=== PATIENT | female | born 1975 ===

== ENCOUNTER 2017-09-17 12:11 | Emergency (ER) | payer SELFPAY ==
[2017-09-17 12:15] VITALS: BMI 26.6
[2017-09-17 12:16] VITALS: RESP 18
--- NOTE | 2017-09-17 12:52 | ED PDOC ---
HPI: Back Time Seen by Provider: 09/17/17 12:26 Chief Complaint (Nursing): Back Pain Chief Complaint (Provider): Back Pain History Per: Patient History/Exam Limitations: no limitations Onset/Duration Of Symptoms: Days (x3) Current Symptoms Are (Timing): Still Present Exacerbating Factor(s): Movement Additional Complaint(s): Patient reports 3 day history of pain in the lower back, which worsens with movement. Associated with nausea. Patient also reports she started her period 6 days ago. States she has been taking ibuprofen without relief, and also began taking Cipro she had at home. Otherwise: (-) vomiting, (-) diarrhea, (- ) paresthesias, (-) weakness, (-) acute bowel or bladder dysfunction, (-) fever , (-) fall or trauma. Reports history of renal colic. PMD: Isak Henry Past Medical History Reviewed: Historical Data, Nursing Documentation, Vital Signs Vital Signs: Last Vital Signs Temp 98.2 F 09/17/17 12:14 Pulse 54 L 09/17/17 12:14 Resp 18 09/17/17 12:14 BP 118/74 09/17/17 12:14 Pulse Ox 100 09/17/17 12:14 - Medical History PMH: Asthma, Kidney Stones - Family History Family History: States: Unknown Family Hx - Social History Current smoker - smoking cessation education provided: No Alcohol: None Drugs: Denies - Home Medications Home Medications: Ambulatory Orders Medication Instructions Recorded Cyclobenzaprine [Cyclobenzaprine 10 mg PO TID PRN #15 tab 09/17/17 HCl] Meloxicam [Mobic] 15 mg PO DAILY #30 tab 09/17/17 - Allergies Allergies/Adverse Reactions: Allergies Allergy/AdvReac Type Severity Reaction Status Date / Time No Known Allergies Allergy Verified 09/17/17 12:51 Review of Systems ROS Statement: Except As Marked, All Systems Reviewed And Found Negative Constitutional: Negative for: Fever Gastrointestinal: Positive for: Nausea. Negative for: Vomiting, Diarrhea Genitourinary Female: Negative for: Incontinence Musculoskeletal: Positive for: Back Pain Neurological: Negative for: Weakness, Numbness, Other (paresthesia) Physical Exam - Reviewed Nursing Documentation Reviewed: Yes Vital Signs Reviewed: Yes - Physical Exam Comments: GENERAL APPEARANCE: Patient is awake, alert, oriented x 3, in mild painful distress. SKIN: Warm, dry; (-) cyanosis. EYES: (-) conjunctival pallor. ENMT: Mucous membranes moist. NECK: (-) tenderness, (-) stiffness, (-) lymphadenopathy. CHEST AND RESPIRATORY: (-) rales, (-) rhonchi, (-) wheezes; breath sounds equal bilaterally. HEART AND CARDIOVASCULAR: (-) irregularity; (-) murmur, (-) gallop. ABDOMEN AND GI: Soft; (-) tenderness; (-) palpable mass. BACK: (+) Right paralumbar tenderness, (-) CVA tenderness, (-) direct bony tenderness, (-) deformity. Straight leg raising (-) bilaterally. EXTREMITIES: (-) deformity. Distal pulses good bilaterally. NEURO AND PSYCH: Mental status as above. Intact sensation bilaterally; normal strength in extension of the knees, plantar and dorsiflexion of the toes. DTRs symmetric. - ECG O2 Sat by Pulse Oximetry: 100 (RA) Pulse Ox Interpretation: Normal Medical Decision Making Medical Decision Making: Time: 12:55 Initial Plan: --Flexeril 10 mg PO --Toradol 60 mg IM --Renal ultrasound Uhcg (-) UA (-) blood, (-) nitrate, (-) leuks Time: 14:57 Renal US: FINDINGS: RIGHT KIDNEY: Measures: 11.8 cm. Normal in size, contour and echogenicity. No stone, solid mass lesion or hydronephrosis visualized. LEFT KIDNEY: Measures: 10.7 cm. Normal in size, contour and echogenicity. No stone, solid mass lesion or hydronephrosis visualized. OTHER FINDINGS: None. IMPRESSION: Normal renal sonogram. Time: 15:21 On reevaluation, patient is feeling better and sitting comfortably. No abdominal tenderness or CVA tenderness on exam. Stable for discharge home. Patient counseled regarding diagnosis of musculoskeletal back pain. Advised to follow up with primary care physician or the clinic in 1-2 days without fail. Advised to take medication as prescribed. Return to the emergency room at any time for any new or worsening symptoms. Patient states she fully agrees with and understands discharge instructions. States that she agrees with the plan and disposition. Verbalized and repeated discharge instructions and plan. I have given the patient opportunity to ask any additional questions. Scribe Attestation: Documented by Kiana Sarmiento, acting as a scribe for Stephania Deleon PA-C Provider Scribe Attestation: All medical record entries made by the Scribe were at my direction and personally dictated by me. I have reviewed the chart and agree that the record accurately reflects my personal performance of the history, physical exam, medical decision making, and the department course for this patient. I have also personally directed, reviewed, and agree with the discharge instructions and disposition. Disposition - Clinical Impression Clinical Impression: Low back pain - Patient ED Disposition Is Patient to be Admitted: No Counseled Patient/Family Regarding: Studies Performed, Diagnosis, Need For Followup, Rx Given - Disposition Referrals: [facility] [Outside] Disposition: Routine/Home Disposition Time: 15:10 Condition: STABLE Additional Instructions: Thank you for letting us take care of you today. You were treated for low back pain. The emergency medical care you received today was directed at your acute symptoms. If you were prescribed any medication, please fill it and take as directed. It may take several days for your symptoms to resolve. Return to the Emergency Department if your symptoms worsen, do not improve, or if you have any other problems. Please contact your doctor in 2 days for re-evaluation and follow up / or call one of the physicians/clinics you have been referred to that are listed on the Patient Visit Information form that is included in your discharge packet. Bring any paperwork you were given at discharge with you along with any medications you are taking to your follow up visit. Our treatment cannot replace ongoing medical care by a primary care provider (PCP) outside of the emergency department. [facility] today. Prescriptions: Cyclobenzaprine [Cyclobenzaprine HCl] 10 mg PO TID PRN #15 tab PRN Reason: Muscle Spasm Meloxicam [Mobic] 15 mg PO DAILY #30 tab Instructions: Low Back Pain (DC) Forms: [employer] (Austrian), [facility] ED School/Work Excuse Print Language: [place] - POA Present On Arrival: None
--- NOTE | 2017-09-17 14:58 | US ---
PROCEDURE: Ultrasound of the Kidneys HISTORY: Left back pain COMPARISON: None available. TECHNIQUE: Grayscale imaging was performed. FINDINGS: RIGHT KIDNEY: Measures: 11.8 cm. Normal in size, contour and echogenicity. No stone, solid mass lesion or hydronephrosis visualized. LEFT KIDNEY: Measures: 10.7 cm. Normal in size, contour and echogenicity. No stone, solid mass lesion or hydronephrosis visualized. OTHER FINDINGS: None. IMPRESSION: Normal renal sonogram.
[2017-09-17 15:22] VITALS: BP 100/59; PULSE 56; TEMP 98.4
[2017-09-17 15:27] VITALS: O2SAT 100
== END 2017-09-17 15:33 | disposition home or self-care (01) ==
LOC: H.ER 12:11
DX: M54.5 Low back pain (principal); J45.909 Unspecified asthma, uncomplicated
CPT/HCPCS: 76770; 81025; 96372; 99282; J1885

== ENCOUNTER 2018-02-06 02:10 | Emergency (ER) | payer SELFPAY ==
[2018-02-06 02:12] VITALS: BMI 26.6
[2018-02-06 02:20] VITALS: BP 99/61; PULSE 77; RESP 16; TEMP 98.2; O2SAT 98
[2018-02-06] MEDS ORDERED: Sodium Chloride 0.9% 1,000 ML IV STA (02:21)
[2018-02-06] MEDS ORDERED: DiphenhydrAMINE 50 mg/ml Inj IVP STA (02:21)
[2018-02-06] MEDS ORDERED: DiphenhydrAMINE 50 mg/ml Inj ONE (02:31)
--- NOTE | 2018-02-06 02:33 | ED PDOC ---
HPI: Allergic Reaction Time Seen by Provider: 02/06/18 02:21 Chief Complaint (Nursing): Allergic Reaction History Per: Patient History/Exam Limitations: no limitations Onset/Duration Of Symptoms: Mins Current Symptoms Are (Timing): Better Possible Cause: Unknown Associated Symptoms: Swelling, Trouble Swallowing Home/EMS Treatment: Benadryl Severity: Mild Additional Complaint(s): No PMHx presenting with allergic reaction, states she has had similar reactions in the past but has not had workup with coffee bar attendant yet due to insurance issues. States that 1 hour prior to arrival she noticed swelling of her lips and throat swelling and mild difficulty breathing. States she took one benadryl and started to feel better but still had lip swelling, prompting ED visit. No fevers. No new exposures as per patient. Past Medical History Reviewed: Historical Data, Nursing Documentation, Vital Signs Vital Signs: Last Vital Signs Temp 98.2 F 02/06/18 02:16 Pulse 77 02/06/18 02:16 Resp 16 02/06/18 02:16 BP 99/61 L 02/06/18 02:16 Pulse Ox 98 02/06/18 02:16 - Medical History PMH: Asthma, Kidney Stones - Family History Family History: States: Unknown Family Hx - Home Medications Home Medications: Ambulatory Orders Medication Instructions Recorded Cyclobenzaprine [Cyclobenzaprine 10 mg PO TID PRN #15 tab 09/17/17 HCl] Meloxicam [Mobic] 15 mg PO DAILY #30 tab 09/17/17 predniSONE [predniSONE Tab] 60 mg PO DAILY #9 tab 02/06/18 - Allergies Allergies/Adverse Reactions: Allergies Allergy/AdvReac Type Severity Reaction Status Date / Time No Known Allergies Allergy Verified 09/17/17 12:51 Review of Systems ROS Statement: Except As Marked, All Systems Reviewed And Found Negative Skin: Negative for: Rash Physical Exam - Reviewed Nursing Documentation Reviewed: Yes Vital Signs Reviewed: Yes - Physical Exam Appears: Positive for: Well, Non-toxic, No Acute Distress Head Exam: Positive for: ATRAUMATIC, NORMAL INSPECTION, NORMOCEPHALIC Skin: Positive for: Normal Color, Warm. Negative for: Rash Eye Exam: Positive for: EOMI, Normal appearance, PERRL ENT: Positive for: Other (Lip swelling, mild, on L). Negative for: Normal ENT Inspection (Mild uvular swelling) Neck: Positive for: Normal, Painless ROM Cardiovascular/Chest: Positive for: Regular Rate, Rhythm Respiratory: Positive for: CNT, Normal Breath Sounds Gastrointestinal/Abdominal: Positive for: Normal Exam, Soft. Negative for: Tenderness Back: Positive for: Normal Inspection Extremity: Positive for: Normal ROM Neurologic/Psych: Positive for: Alert, Oriented - ECG O2 Sat by Pulse Oximetry: 98 - Progress ED Course And Treament: 215AM A/P: Hx of allergic reactions in the past presenting with allergic reaction -patient comfortable, walked into room, spoke in clear, fluent sentences -likely mild allergic reaction, will give benadryl, pepcid, solumedrol 530AM Swelling is now gone. Patient drank cup of water without difficulty Advised importance of followup with coffee bar attendant Re-evaluation Time: 05:30 (Swelling is gone.) Condition: Re-examined, Improved Disposition - Clinical Impression Clinical Impression: Allergic reaction - Disposition Referrals: [facility] [Outside] Disposition: Routine/Home Disposition Time: 05:29 Condition: STABLE Prescriptions: predniSONE [predniSONE Tab] 60 mg PO DAILY #9 tab Instructions: Allergy Skin Testing Forms: [facility] (Indonesian) Print Language: AZERI
== END 2018-02-06 05:43 | disposition home or self-care (01) ==
LOC: H.ER 02:10
DX: T78.40XA Allergy, unspecified, initial encounter (principal); J45.909 Unspecified asthma, uncomplicated; Z87.442 Personal history of urinary calculi
CPT/HCPCS: 96361; 96374; 96375; 99283; J1200; J2930; J7030